=== PATIENT | male | born 1995 | race Caucasian/White ===

== ENCOUNTER 2021-05-24 10:10 | Emergency (ER) | payer OTHER ==
[~2021-05-24] VITALS: Ht 177.8 cm; Wt 95.8 kg
[2021-05-24] MEDS ORDERED: DEXAMETHASONE 4 MG/ML, 5ML ONE (11:56)
[2021-05-24] MEDS ORDERED: DEXAMETHASONE 4 MG/ML, 1ML PO ONE (12:00)
[2021-05-24] MEDS ORDERED: DEXAMETHASONE 4 MG TABLET PO ONE (12:00)
[2021-05-24 13:18] VITALS: BP 124/74
== END 2021-05-24 13:22 | disposition home or self-care (01) ==
LOC: ED 13:15
DX: B34.9 Viral infection, unspecified (principal); K13.79 Other lesions of oral mucosa
CPT/HCPCS: 71045; 99283; J1100